=== PATIENT | male | born 1995 | race Caucasian/White ===

== ENCOUNTER 2018-11-20 18:30 | Emergency (ER) | payer BC ==
--- NOTE | 2018-11-20 19:29 | EDPHY ---
H & P Time Seen by Provider: 11/20/18 19:07 HPI/ROS: CHIEF COMPLAINT: Knee pain and possible vascular injury HISTORY OF PRESENT ILLNESS: Patient hit a tree while he was snowboarding 2 days ago and had what he tells me probably a tibial plateau fracture, ACL PCL and MCL injury. He says he might have dislocated it. [facility] and had an MRI that showed a possible vascular injury and presents today for angiography. Patient has no other injuries except for his left knee. He says his foot feels a little numb and tingly although he can move it and he can feel me touch it. Denies head injury neck or back pain or any other lower extremity injury except for his left knee. REVIEW OF SYSTEMS: Eye: no change in vision ENT: no sore throat Cardiac: no chest pain or syncope Pulmonary: no cough or SOB Abdomen: no vomiting, diarrhea, abdominal pain Musculoskeletal: HPI Skin: no rash Neuro: no headache Constitutional: no fever : no urinary symptoms A comprehensive 10 point review of systems is otherwise negative aside from elements mentioned in the history of present illness. PAST MEDICAL HISTORY: Tonsillectomy Social history: Here with his mom General Appearance: Alert and conversant, cooperative. Eyes: No scleral icterus. ENT, Mouth: Normal mucous membranes. Respiratory: Normal respiratory effort, breath sounds equal, lungs are clear to auscultation. Cardiovascular: Regular rate and rhythm. Gastrointestinal: Abdomen is soft and non tender. Neurological: Alert, face symmetric. He can move the toes of his left foot. He can feel me touch it sensation is intact to light touch although he says it feels a little bit "tingly". He has a dorsalis pedis pulse palpable in the left foot. Skin: Warm and dry, no rashes. Musculoskeletal: Left knee is in a brace. Psychiatric: Not agitated. Emergency Department course/MDM: Plan for i-STAT creatinine and CT angiography of the left lower extremity. 2020: Normal arterial angiogram per Finer; no dissection or injury. tibial plateau and distal femur fracture. Smoking Status: Former smoker Constitutional: Initial Vital Signs Temperature (C) 36.9 C 11/20/18 19:07 Heart Rate 101 H 11/20/18 19:07 Respiratory Rate 18 11/20/18 19:07 Blood Pressure 140/93 H 11/20/18 19:07 O2 Sat (%) 97 11/20/18 19:07 O2 Delivery Mode Room Air Allergies/Adverse Reactions: No Known Allergies Allergy (Unverified 11/20/18 19:12) Home Medications: Medication Instructions Recorded Lovenox 11/20/18 Filer 5/325 (*) 11/20/18 Medical Decision Making - Diagnostics Imaging: Discussed imaging studies w/ at home independent call center agent Radiologist - Data Points Laboratory Results: 11/20/18 19:34 POC Hgb 14.6 gm/dL gm/dL (13.7-17.5) POC Hct 43 % % (40-51) POC Sodium 145 mEq/L mEq/L (135-145) POC Potassium 3.7 mEq/L mEq/L (3.3-5.0) POC Chloride 107 mEq/L mEq/L (97-110) POC BUN 18 mg/dL mg/dL (7-23) POC Creatinine 0.8 mg/dL mg/dL (0.7-1.3) POC Glucose 84 mg/dL mg/dL (70-100) Point of Care Test Results: Chemistry 11/20/18 19:34 POC Sodium 145 mEq/L mEq/L (135-145) POC Potassium 3.7 mEq/L mEq/L (3.3-5.0) POC Chloride 107 mEq/L mEq/L (97-110) POC BUN 18 mg/dL mg/dL (7-23) POC Creatinine 0.8 mg/dL mg/dL (0.7-1.3) POC Glucose 84 mg/dL mg/dL (70-100) ISTAT H&H 11/20/18 19:34 POC Hgb 14.6 gm/dL gm/dL (13.7-17.5) POC Hct 43 % % (40-51) Departure - Departure Disposition: Home, Routine, Self-Care Clinical Impression: Left knee injury Qualifiers: Encounter type: subsequent encounter Qualified Code(s): S89.92XD - Unspecified injury of left lower leg, subsequent encounter Condition: Good Instructions: Hinged Knee Brace (ED) Referrals: Gurvinder Crabtree MD [Medical Doctor] - As per Instructions
[2018-11-20] MEDS ORDERED: IOHEXOL 350mgI/ML (OMNIPAQUE) 150 ML BTL IV ONE (19:40)
[2018-11-20 20:34] VITALS: BP 141/75
== END 2018-11-20 20:30 | disposition home or self-care (01) ==
DX: S89.92XD Unspecified injury of left lower leg, subsequent encounter (principal); V00.3 Flat-bottomed pedestrian conveyance accident
CPT/HCPCS: 82435-PO; 82565-PO; 82947-PO; 84132-PO; 84295-PO; 84520-PO; 85014-ER; Q9967